=== PATIENT | male | born 1940 | race Caucasian/White ===

== ENCOUNTER 2023-06-15 06:11 | Outpatient (RCR) | payer MEDICARE, OTHER, SELFPAY | END 2023-06-15 23:59 | disposition home or self-care (01) | LOC: RPT 06:11 | PROVIDERS: FAMILY PHYSICIAN Internal Medicine | DX: B02.21 Postherpetic geniculate ganglionitis (principal); Z73.6 Limitation of activities due to disability; R26.2 Difficulty in walking, not elsewhere classified; M62.81 Muscle weakness (generalized) | CPT/HCPCS: 97110; 97162 ==

== ENCOUNTER 2023-07-21 08:49 | Outpatient (RCR) | payer MEDICARE, OTHER, SELFPAY | END 2023-07-21 23:59 | disposition home or self-care (01) | LOC: RPT 08:49 | PROVIDERS: FAMILY PHYSICIAN Internal Medicine | DX: B02.21 Postherpetic geniculate ganglionitis (principal); Z73.6 Limitation of activities due to disability | CPT/HCPCS: 97110; 97112; 97530 ==

== ENCOUNTER 2023-08-16 10:48 | Outpatient (RCR) | payer MEDICARE, OTHER, SELFPAY | END 2023-08-16 23:59 | disposition home or self-care (01) | LOC: RPT 10:48 | PROVIDERS: FAMILY PHYSICIAN Internal Medicine | DX: B02.21 Postherpetic geniculate ganglionitis (principal) | CPT/HCPCS: 97110; 97112; 97530 ==

== ENCOUNTER → 2024-12-20 12:55 | Outpatient (REF) | payer MEDICARE, OTHER, SELFPAY | LOC: RCS 12:55 | PROVIDERS: ATTENDING PHYSICIAN Internal Medicine Cardiovascular Disease; FAMILY PHYSICIAN Internal Medicine | DX: I48.0 Paroxysmal atrial fibrillation (principal) | CPT/HCPCS: 93306 ==